=== PATIENT | female | born 1990 | race African-American/Black ===

== ENCOUNTER 2017-09-13 08:58 | Emergency (ER) | payer OTHER ==
[~2017-09-13] VITALS: Ht 170.2 cm; Wt 75.0 kg
[2017-09-13 09:36] VITALS: BP 119/79
== END 2017-09-13 10:18 | disposition home or self-care (01) ==
LOC: EMS 09:00
DX: L03.011 Cellulitis of right finger (principal)
CPT/HCPCS: 99283

== ENCOUNTER 2017-09-17 08:48 | Emergency (ER) | payer OTHER ==
[~2017-09-17] VITALS: Ht 175.3 cm; Wt 65.9 kg
[2017-09-17] MEDS ORDERED: ABX (08:53)
[2017-09-17] MEDS ORDERED: LIDOCAINE HCL 1% 10 ML VIAL INJ ONE (09:45)
[2017-09-17] MEDS ORDERED: POVIDONE-IODINE 10% 15 ML SOLUTION UD TP ONE (09:45)
[2017-09-17 10:41] VITALS: BP 124/68
== END 2017-09-17 10:48 | disposition home or self-care (01) ==
LOC: EMS 08:48
DX: L03.011 Cellulitis of right finger (principal)
CPT/HCPCS: 10060; 99283; J3490

== ENCOUNTER 2017-12-25 15:52 | Emergency (ER) | payer OTHER ==
[~2017-12-25] VITALS: Ht 167.6 cm; Wt 77.0 kg
[~2017-12-25 15:52] MED LIST: ABX
[2017-12-25 17:15] VITALS: BP 113/69
[2017-12-25] MEDS ORDERED: IBUPROFEN 800 MG TABLET PO ONE (18:00)
== END 2017-12-25 18:48 | disposition home or self-care (01) ==
LOC: EMS 15:53
DX: S99.921A Unspecified injury of right foot, initial encounter (principal); M79.674 Pain in right toe(s); W22.8XXA Striking against or struck by other objects, initial encounter; Y93.89 Activity, other specified; Y92.89 Other specified places as the place of occurrence of the external cause; Y99.8 Other external cause status
CPT/HCPCS: 99284

== ENCOUNTER 2018-01-04 11:16 | Emergency (ER) | payer OTHER ==
[~2018-01-04] VITALS: Ht 167.6 cm; Wt 75.0 kg
[2018-01-04] MEDS ORDERED: DiphenhydrAMINE HCL 50 MG/ML VIAL IM ONE (11:45)
[2018-01-04] MEDS ORDERED: PredniSONE 20 MG TABLET PO ONE (11:45)
[2018-01-04] MEDS ORDERED: DiphenhydrAMINE HCL 25 MG CAPSULE PO ONE (11:45)
[2018-01-04 12:55] VITALS: BP 107/77
== END 2018-01-04 13:07 | disposition home or self-care (01) ==
LOC: EMS 11:17
DX: T78.49XA Other allergy, initial encounter (principal); L50.9 Urticaria, unspecified; M54.2 Cervicalgia; X58.XXXA Exposure to other specified factors, initial encounter
CPT/HCPCS: 93005; 96372; 99283; J1200; J7512

== ENCOUNTER 2018-08-11 15:19 | Emergency (ER) | payer OTHER ==
[~2018-08-11] VITALS: Ht 170.2 cm; Wt 76.4 kg
[2018-08-11] MEDS ORDERED: ACET-2247 PO (15:23)
[2018-08-11] MEDS ORDERED: METOCLOPRAMIDE HCL 5 MG/ML 2 ML VIAL IVP ONE (17:45)
[2018-08-11] MEDS ORDERED: SODIUM CHLORIDE 0.9% 1,000 ML IV ONE (17:45)
[2018-08-11] MEDS ORDERED: DiphenhydrAMINE HCL 50 MG/ML VIAL IVP ONE (17:45)
[2018-08-11 17:57] LABS: BASOPHILS % (AUTO) 0.6 % (0.0-2.0); EOSINOPHILS % (AUTO) 6.4 % (1.0-6.0); HEMATOCRIT 37.7 % (36-46); HEMOGLOBIN 12.4 g/dL (12.0-16.0); MEAN CORPUSCULAR HEMOGLOBIN 30.1 pg (26.0-34.0); MEAN CORPUSCULAR VOLUME 91 fL (80-100); MONOCYTES # (AUTO) 0.6 K/uL (0.1-1.0); MONOCYTES % (AUTO) 6.5 % (2.0-9.0); NEUTROPHILS # (AUTO) 6.5 K/uL (1.8-7.7); NEUTROPHILS % (AUTO) 66.5 % (40.0-70.0); PLATELET COUNT (AUTO) 213 K/uL (150-450); RED BLOOD CELL COUNT(AUTO) 4.14 MIL/uL (4.00-5.20); RED CELL DISTRIBUTION WIDTH 12.8 % (11.5-14.5)
[2018-08-11 18:09] LABS: ANION GAP 3 mmol/L (8-16); CALCIUM, TOTAL 8.7 mg/dL (8.8-10.5); CARBON DIOXIDE 30 mmol/L (22-29); CHLORIDE 104 mmol/L (98-107); CREATININE 0.81 mg/dL (0.60-1.30); GLOMERULAR FILTR. RATE CALC > 60 mL/min (>60); GLUCOSE,RANDOM 94 mg/dL (70-110); POTASSIUM 4.1 mmol/L (3.5-5.1); SODIUM SERUM 137 mmol/L (136-145); UREA NITROGEN, BLOOD 10 mg/dL (7-18)
[2018-08-11 18:25] LABS: ALANINE AMINOTRANSFERASE 23 U/L (12-78); ALBUMIN 3.8 g/dL (3.4-5.0); ALKALINE PHOSPHATASE 63 U/L (46-116); BILIRUBIN,TOTAL 0.2 mg/dL (0.1-1.0); HCG,QUANTITATIVE < 1 mIU/mL (0-6); TOTAL PROTEIN, SERUM 7.4 g/dL (6.4-8.2)
[2018-08-11 18:40] LABS: ASPARTATE AMINOTRANSFERASE 23 U/L (15-37)
[2018-08-11 19:47] VITALS: BP 116/73
== END 2018-08-11 19:56 | disposition home or self-care (01) ==
LOC: EMS 15:19
DX: G43.909 Migraine, unspecified, not intractable, without status migrainosus (principal); R11.2 Nausea with vomiting, unspecified
CPT/HCPCS: 36415; 70450; 80053; 84702; 85025; 96361; 96374; 96375; 99284; J1200; J2765; J7030

== ENCOUNTER 2021-07-21 18:17 | Emergency (ER) | payer MEDICAID, OTHER ==
[~2021-07-21] VITALS: Ht 170.2 cm; Wt 54.5 kg
[~2021-07-21 18:17] MED LIST changes: -ABX; +ACET-2247 PO
[2021-07-21 18:26] VITALS: BP 120/58
[2021-07-21] MEDS ORDERED: ACETAMINOPHEN 500 MG TABLET PO ONE (20:30)
[2021-07-21] MEDS ORDERED: ONDANSETRON HCL 4 MG TABLET PO ONE (20:30)
[2021-07-21 20:44] LABS: BASOPHILS % (AUTO) 0.6 % (0.0-2.0); EOSINOPHILS % (AUTO) 3.2 % (1.0-6.0); HEMATOCRIT 40.4 % (36-46); HEMOGLOBIN 13.2 g/dL (12.0-16.0); LYMPHOCYTES # (AUTO) 2.4 K/uL (1.0-4.8); LYMPHOCYTES % (AUTO) 29.6 % (22.0-44.0); MEAN CORPUSCULAR HEMOGLOBIN 30.4 pg (26.0-34.0); MEAN CORPUSCULAR HGB CONC 32.6 G/dL (31.0-37.0); MEAN CORPUSCULAR VOLUME 93 fL (80-100); MONOCYTES # (AUTO) 0.7 K/uL (0.1-1.0); MONOCYTES % (AUTO) 8.1 % (2.0-9.0); NEUTROPHILS # (AUTO) 4.8 K/uL (1.8-7.7); NEUTROPHILS % (AUTO) 58.5 % (40.0-70.0); PLATELET COUNT (AUTO) 188 K/uL (150-450); RED BLOOD CELL COUNT(AUTO) 4.33 MIL/uL (4.00-5.20); RED CELL DISTRIBUTION WIDTH 13.6 % (11.5-14.5)
[2021-07-21 21:00] LABS: ANION GAP 9 mmol/L (8-16); CALCIUM, TOTAL 9.3 mg/dL (8.8-10.5); CARBON DIOXIDE 29 mmol/L (22-29); CHLORIDE 104 mmol/L (98-107); CREATININE 0.79 mg/dL (0.60-1.30); GLOMERULAR FILTR. RATE CALC > 60 mL/min (>60); GLUCOSE,RANDOM 93 mg/dL (70-110); POTASSIUM 3.7 mmol/L (3.5-5.1); SODIUM SERUM 142 mmol/L (136-145); UREA NITROGEN, BLOOD 9 mg/dL (7-18)
[2021-07-21 21:11] LABS: ALANINE AMINOTRANSFERASE 12 U/L (12-78); ALBUMIN 4.3 g/dL (3.4-5.0); ALKALINE PHOSPHATASE 59 U/L (46-116); ASPARTATE AMINOTRANSFERASE 13 U/L (15-37); BILIRUBIN,TOTAL 0.4 mg/dL (0.1-1.0); HCG,QUANTITATIVE < 1 mIU/mL (0-6); LIPASE 166 U/L (73-393); TOTAL PROTEIN, SERUM 7.9 g/dL (6.4-8.2)
== END 2021-07-21 23:35 | disposition home or self-care (01) ==
LOC: EMS 18:17
DX: R11.2 Nausea with vomiting, unspecified (principal); R63.0 Anorexia
CPT/HCPCS: 36415; 80053; 83690; 84702; 85025; 99283; G0480; Q0162

== ENCOUNTER 2021-09-22 10:27 | Outpatient (CLI) | payer OTHER ==
[~2021-09-22] VITALS: Ht 170.2 cm; Wt 50.8 kg
[2021-09-22 10:30] VITALS: BP 97/67
[2021-09-22 12:00] VITALS: BP 97/67
[2021-09-22] MEDS ORDERED: ESZOPICLONE 2 MG TABLET PO PRN (12:15)
[2021-09-22] MEDS ORDERED: ESZO2 PO (12:21)
[2021-09-22] MEDS ORDERED: ESCI-8 PO (12:21)
[2021-09-22 15:01] LABS: GLUCOMETER DEV NAME(LOC) POC.BV
[2021-09-23] MEDS ORDERED: ESCITALOPRAM OXALATE 10 MG TABLET PO SCH (09:00)
== END 2021-09-22 11:40 | disposition home or self-care (01) ==
LOC: CSU 10:27
PROVIDERS: ATTEND Psychiatry & Neurology Psychiatry
DX: F41.1 Generalized anxiety disorder (principal); G47.00 Insomnia, unspecified; Z20.822 Contact with and (suspected) exposure to COVID-19; Z87.891 Personal history of nicotine dependence
CPT/HCPCS: 90792